=== PATIENT | male | born 1965 | race Caucasian/White ===

== ENCOUNTER 2020-07-10 05:35 | Inpatient (IN) ==
[2020-07-10] MEDS ORDERED: Lactated Ringers 1000 ml BAG 1,000 ML IV SCH (06:00)
[2020-07-10] MEDS ORDERED: Buffered Lidocaine 1% SYRIN 1 ml INTRADERM ONE (06:00)
[2020-07-10] MEDS ORDERED: ceFAZolin 2 GM PREMIX 2 GM/50 ML BAG ONE (06:11)
[2020-07-10] MEDS ORDERED: Famotidine IV 10 MG/ML 2 ml VIAL (20 mg) ONE (06:49)
[2020-07-10] MEDS ORDERED: Lidocaine 2% PF 5 ML VIAL ONE ×2 (06:51→07:15)
[2020-07-10] MEDS ORDERED: Dexamethasone IV 4 MG/ML VIAL 1 ml VIAL ONE (06:53)
[2020-07-10] MEDS ORDERED: Phenylephrine IV 10 MG/ML 1 ml VIAL ONE (06:53)
[2020-07-10] MEDS ORDERED: Propofol 10 MG/ML 20 ML BTL ONE (06:53)
[2020-07-10] MEDS ORDERED: Ondansetron 4 mg VIAL 2 MG/ML 2 ml VIAL ONE (06:53)
[2020-07-10] MEDS ORDERED: Midazolam 2 mg/2 ml VIAL 1 mg/ml 2 ml VIAL (2 mg) ONE (06:57)
[2020-07-10] MEDS ORDERED: fentaNYL 100 mcg/2 ml 50 MCG/ML VIAL ONE ×2 (06:58→07:15)
[2020-07-10] MEDS: Famotidine IV 10 MG/ML 2 ml VIAL (20 mg) IV ONE ×2 (06:59→17:09)
[2020-07-10] MEDS ORDERED: Rocuronium 50 mg VIAL 10 mg/ml 5 ml VIAL (50 mg) ONE ×2 (07:01→10:38)
[2020-07-10] MEDS ORDERED: Midazolam 5 mg/5 ml VIAL 1 mg/ml 5 ml VIAL (5 mg) ONE (07:15)
[2020-07-10] MEDS ORDERED: ROPIVACAINE 5 MG/ML 30 ML BTL (0.5%) ONE (07:15)
[2020-07-10] MEDS ORDERED: Succinylcholine 200 mg VIAL 20 mg/ml 10 ml VIAL (200 mg) ONE (08:00)
[2020-07-10] MEDS ORDERED: Lidocaine 1% w EPI 1:100,000 MDV 20 ML VIAL ONE (08:59)
[2020-07-10] MEDS ORDERED: Bupivacaine 0.25% SDV 30 ML ONE (08:59)
[2020-07-10] MEDS ORDERED: HYDROmorphone 1 MG/1 ML SYRINGE ONE ×2 (09:03→12:48)
[2020-07-10] MEDS ORDERED: Vancomycin 1,000 MG VIAL ONE (11:09)
[2020-07-10] MEDS ORDERED: fentaNYL 100 mcg/2 ml 50 MCG/ML VIAL IV PRN (11:53)
[2020-07-10] MEDS ORDERED: Naloxone 0.4 mg VIAL 0.4 mg/ml 1 ml VIAL IV PRN (11:53)
[2020-07-10] MEDS ORDERED: Ondansetron 4 mg VIAL 2 MG/ML 2 ml VIAL IV PRN ×2 (11:53→12:00)
[2020-07-10] MEDS ORDERED: Morphine 2 MG/ML SYRINGE IV PRN (12:00)
[2020-07-10] MEDS ORDERED: Ondansetron ODT 4 mg TAB 4 MG TAB PO PRN (12:00)
[2020-07-10] MEDS ORDERED: Lactulose 30 ml UDC PO PRN (12:00)
[2020-07-10] MEDS ORDERED: diPHENhydraMINE IV 50 MG/ML 1 ml VIAL (BENADRYL) IV PRN (12:00)
[2020-07-10] MEDS ORDERED: Magnesium Hydroxide LIQ 30 ML UDC PO PRN (12:00)
[2020-07-10] MEDS ORDERED: diPHENhydraMINE 25 mg TAB PO PRN (12:00)
[2020-07-10] MEDS ORDERED: Dextrose 50% Syringe 50 ml 25 GM/50 ML SYRINGE IV PUSH PRN (12:10)
[2020-07-10] MEDS: HYDROmorphone 1 MG/1 ML SYRINGE IV PRN ×2 (12:49→13:08)
[2020-07-10 12:58] LABS: Hematocrit 35 % (42-52); Hemoglobin 11.6 g/dL (14.0-18.0)
[2020-07-10] MEDS ORDERED: oxyCODONE/Acetamin 5/325 mg TAB ONE (13:19)
[2020-07-10] MEDS ORDERED: HYDROmorphone 1 MG/1 ML SYRINGE IV PRN (13:35)
[2020-07-10] MEDS: Lactated Ringers 1000 ml BAG 1,000 ML IV SCH (14:06)
[2020-07-10] MEDS: ceFAZolin 1 GM ADVAN 1 GM in NS 0.9% 50 ML 50 ML IVPB SCH (16:38)
[2020-07-10] MEDS: Magnesium Hydroxide LIQ 30 ML UDC PO SCH (21:15)
[2020-07-11] MEDS: ceFAZolin 1 GM ADVAN 1 GM in NS 0.9% 50 ML 50 ML IVPB SCH ×2 (00:41→09:28)
[2020-07-11] MEDS: Lactated Ringers 1000 ml BAG 1,000 ML IV SCH (00:59)
[2020-07-11 07:33] VITALS: BP 140/74
[2020-07-11 08:11] LABS: Hematocrit 40 % (42-52); Hemoglobin 13.1 g/dL (14.0-18.0); Mean Platelet Volume 7.9 fL (7.4-10.4); Platelet Count 260 10^3/uL (150-450)
[2020-07-11 08:30] LABS: BUN/Creatinine Ratio 20.5 (8-20); Calcium 9.1 mg/dL (8.6-10.3); EGFR African American 125.5 (>60); EGFR Non-African American 103.7 (>60); Potassium 4.3 mmol/L (3.5-5.0)
[2020-07-11] MEDS ORDERED: Aspirin EC 81 mg TAB.EC (enteric coated) PO SCH (09:00)
[2020-07-11] MEDS ORDERED: Vitamin THERAPEUTIC TAB PO SCH (09:00)
[2020-07-11] MEDS: Magnesium Hydroxide LIQ 30 ML UDC PO SCH (09:29)
== END 2020-07-11 10:35 | disposition home or self-care (01) | DRG 315 ==
LOC: AA 05:35 → SSU 13:54
PROVIDERS: ADMIT Orthopaedic Surgery; ATTEND Orthopaedic Surgery